=== PATIENT | female | born 1990 | race African-American/Black ===

== ENCOUNTER 2018-02-07 15:31 | Emergency (ER) | payer SELFPAY ==
[2018-02-07 15:42] VITALS: BP 115/68
--- NOTE | 2018-02-07 15:55 | ED Physician Documentation ---
General Adult - HISTORIAN Historian: patient - HPI Stated Complaint: Nausea/Emesis Chief Complaint: Nausea,Vomiting,Diarrhea Additional Information: Intro self as [employer]. pt presents to the ED c/o "generally not feeling well" reports nausea x 3 days. reports vomiting x 3 today and diarrhea yesterday. able to keep down fluids and food. sexually active and does not use control. pt denies current chest pain, dyspnea, syncope/near syncope, headache, dizziness, visual disturbances, diarrhea fever/chills, rash, sick contacts, dysuria, trauma. melena or hematochezia, bleeding or easy bruising, change in bowel or bladder function, no recent weight loss/gain, anxiety or depression. ROS Negative unless otherwise specified. LMP 12/04/17 - ROS CONST: no problems - PAST HX Past History: other (seizures last 2 weeks ago. HTN) Surgeries/Procedures: Allergies/Adverse Reactions: Allergies Allergy/AdvReac Type Severity Reaction Status Date / Time No Known Allergies Allergy Verified 02/07/18 15:42 Home Medications: Ambulatory Orders Medication Instructions Recorded Labetalol HCl [Trandate] 200 mg PO Q8H 05/31/13 Oxcarbazepine [Trileptal] 600 mg PO BID 07/31/15 - SOCIAL HX Smoking History: non-smoker Alcohol Use: none Drug Use: none - FAMILY HX Family History: No - VITAL SIGNS Vital Signs: Vital Signs Temp Pulse Resp BP Pulse Ox 96.8 F L 78 16 115/68 97 02/07/18 15:40 02/07/18 15:40 02/07/18 15:40 02/07/18 15:40 02/07/18 15:40 - REVIEWED ASSESSMENTS Nursing Assessment Reviewed: Yes Vitals Reviewed: Yes ED Results Lab/Radiology - Orders Orders: ED Orders Category Date Time Status UA W/MICRO IF INDICATED Routine Lab 02/07/18 15:47 Ordered URINE HCG Stat Lab 02/07/18 Uncollected General Adult Physical Exam - PHYSICAL EXAM GENERAL APPEARANCE: no distress EENT: eye inspection normal, ENT inspection normal, pharynx normal, no signs of dehydration, [place], no nystagmus, TM's nml NECK: normal inspection, thyroid normal RESPIRATORY: no resp distress, chest non-tender, breath sounds normal CVS: reg rate & rhythm, heart sounds normal, equal pulses, no murmur, no gallop, PMI nml, no JVD, no friction rub, 24 ABDOMEN: soft, no organomegaly, normal bowel sounds, no abdominal bruit, no distension BACK: normal inspection, no CVA tenderness SKIN: normal color, warm/dry, NR, INT, PAL, DR EXTREMITIES: non-tender, normal range of motion, no evidence of injury, no edema, J, [employer] NEURO: oriented X3, motor nml, sensation nml, mood/affect nml Discharge Clincal Impression: Gastroenteritis Referrals: Primary Doctor,No [Primary Care Provider] - 2 Days Additional Instructions: Eat bland foods like soups, broth, crackers, bread, jello. Increase fluids like gatoraid or other electrolyte replacement Phenergan 25 mg 1/2 to ONE tab every 8 hours as needed for nausea. May cause drowsiness. do not drink alcohol or drive with this medicine. use tylenol/ibuprofen for fever. Follow up with primary care next week or before if not improving as expected. seek medical care immediately if difficult to wake, difficulty breathing, feeling faint or fainting, increased rash, chest pain, shortness of breath, or fever not controlled by tylenol/motrin or any concern. PLEASE UNDERSTAND THAT THIS IS AN EMERGENCY EVALUATION FOR YOUR COMPLAINT AND BY NATURE IS LIMITED AND NOT A SUBSTITUTE FOR ONGOING MEDICAL CARE. EVEN THOUGH TEST RESULTS AND TREATMENT PLAN WERE EXPLAINED THERE MAY BE A NEED FOR ADDITIONAL TESTING TO FULLY DETERMINE THE EXTENT OF YOUR ILLNESS/INJURY/OR CO NCERN SO YOU SHOULD CONTACT AND OR ESTABLISH WITH A PRIMARY CARE PROVIDER (OR REFERRAL DOCTOR IF APPLICABLE) FOR AN APPOINTMENT SOON POSSIBLE. Condition: Good Disposition: 01 HOME, SELF-CARE Decision to Admit: NO Date of Decison to Admit: 02/07/18 Decision Time: 17:00
[2018-02-07] MEDS ORDERED: ONDANSETRON HCL 4 MG TAB.RAPDIS PO ONE (16:10)
[2018-02-07] MEDS ORDERED: 0.9 % SODIUM CHLORIDE 1,000 ML IV ONE (16:31)
[2018-02-07 16:40] LABS: APPEARANCE,URINE CLOUDY (CLEAR); COLOR,URINE YELLOW (YELLOW); OCCULT BLOOD,URINE NEGATIVE (NEGATIVE); PH URINE 7.5 (5.0 - 8.0); UROBILINOGEN URINE 0.2 Eu (0.2-1.0)
[2018-02-07 16:47] LABS: MEAN CORPUSCULAR HEMOGLOBIN 28.3 pg (28.0-34.0)
[2018-02-07 18:11] LABS: TOTAL PROTEIN 6.7 g/dL (6.0-8.5)
== END 2018-02-07 17:16 | disposition home or self-care (01) ==
LOC: ED 15:31
DX: K52.9 Noninfective gastroenteritis and colitis, unspecified (principal)
CPT/HCPCS: 36415; 80053; 81002; 81025; 85027; 96365; 99283; 99284; A9270; J7030; S1016

== ENCOUNTER 2019-01-06 09:44 | Emergency (ER) | payer OTHER ==
--- NOTE | 2019-01-06 09:51 | ED Physician Documentation ---
Abdominal Pain - HISTORIAN Historian: patient - HPI Stated Complaint: LLQ pain x 1 week Chief Complaint: Abdominal Pain Onset: days ago (7) Duration: constant Timing: worse Context: recent trauma (C section 5 weeks ago ). denies: out of country travel, bad food Severity: moderate (7/10) Quality: pain, sharp Associated Symptoms: denies: fever, chills, nausea, vomiting, coffee ground emesis, diarrhea, sweating, loss of appetite, back pain Exacerbated by: movements Relieved by: nothing Further Comments: yes (She states she started to have the LLQ pain about one week ago and now it is increasing and move with movement. She states she has some increased pressure on lateral side of the incision from the c section. NO fever. No nausea or vomiting. No rash . She has no drainage from the incision no vaginal complaints) - ROS CONST: no problems - SOCIAL HX Smoking History: cigarettes Alcohol Use: none Drug Use: none - FAMILY HX Family History: none - PAST HX Past History: none Ischemic Bowel Risk Factors: none Other History: none Surgeries/Procedures: Immunizations: UTD Home Medications: Ambulatory Orders Medication Instructions Recorded Labetalol HCl [Trandate] 200 mg PO Q8H 05/31/13 Phenytoin Sodium Extended 100 mg PO DAILY 01/06/19 [Dilantin] Sertraline HCl [Zoloft] 50 mg PO DAILY 01/06/19 Allergies/Adverse Reactions: Allergies Allergy/AdvReac Type Severity Reaction Status Date / Time No Known Allergies Allergy Verified 01/06/19 09:53 - VITAL SIGNS Vital Signs: Vital Signs Temp Pulse Resp BP Pulse Ox 99.1 F 72 19 118/60 97 01/06/19 11:18 01/06/19 11:18 01/06/19 11:18 01/06/19 11:18 01/06/19 11:18 - REVIEWED ASSESSMENTS Nursing Assessment Reviewed: Yes Vitals Reviewed: Yes Progress - Progress Progress: 1040: pain is less DG ED Results Lab/Radiology - Lab Results Lab Results: Lab Results 01/06/19 01/06/19 10:10 10:10 WBC 4.40 K/ul K/ul (4.00-12.00) RBC 4.28 M/ul M/ul (3.90-5.20) Hgb 11.7 g/dL g/dL (11.5-16.0) Hct 36.2 % % (34.5-46.5) MCV 85.0 fl fl (80.0-100.0) MCH 27.3 pg L pg (28.0-34.0) MCHC 32.3 g/dL g/dL (30.0-36.0) RDW 12.8 % % (11.3-14.3) Plt Count 158 K/mm3 K/mm3 (130-400) Neut % (Auto) 60.8 % % (39.0-79.0) Lymph % (Auto) 29.9 % % (16.0-50.0) [place] % (Auto) 7.3 % % (0.0-11.0) Eos % (Auto) 1.7 % % (0.0-6.8) Baso % (Auto) 0.3 % % (0.0-1.5) Neut # (Auto) 2.7 # k/uL # k/uL (1.4-7.7) Lymph # (Auto) 1.3 # k/uL # k/uL (0.6-4.0) [place] # (Auto) 0.3 # k/uL # k/uL (0.0-0.9) Eos # (Auto) 0.1 # k/uL # k/uL (0.0-0.6) Baso # (Auto) 0.0 # k/uL # k/uL (0.0-0.5) Sodium 142 mmol/L mmol/L (137-145) Potassium 3.6 mmol/L mmol/L (3.5-5.1) Chloride 108 mmol/L H mmol/L (98-107) Carbon Dioxide 25 mmol/L mmol/L (22-30) Anion Gap 12.6 BUN 7 mg/dL mg/dL (7-17) Creatinine 0.62 mg/dL mg/dL (0.52-1.04) Estimated Creat Clear 208 Est GFR ( Amer) > 60 (60 - ) Est GFR (Non-Af Amer) > 60 (60 - ) Glucose 108 mg/dL H mg/dL (74-106) Calcium 9.1 mg/dL mg/dL (8.4-10.2) Total Bilirubin 0.3 mg/dL mg/dL (0.2-1.3) AST 34 U/L U/L (15-46) ALT 19 U/L U/L (0-35) Alkaline Phosphatase 108 U/L U/L (38-126) Total Protein 7.1 g/dL g/dL (6.3-8.2) Albumin 3.8 g/dL g/dL (3.5-5.0) - Orders Orders: ED Orders Category Date Time Status IV Started NOW Care 01/06/19 10:[address] ABD & PELVIS W/ CON Stat Exams 01/06/19 Completed CBC/PLATELET/DIFF Stat Lab 01/06/19 10:10 Completed CMP Stat Lab 01/06/19 10:10 Completed UA W/MICRO IF INDICATED Routine Lab 01/06/19 10:10 Received 0.9 % Sodium Chloride [Normal Saline] 1,000 ml Med 01/06/19 10:06 Discontinued IV NOW Ketorolac Tromethamine [Toradol] Med 01/06/19 10:07 Discontinued 30 mg IV NOW ONE Abdominal Pain Physical Exam - Physical Exam General Appearance: no acute distress, alert EENT: eye inspection normal, ENT inspection normal, pharynx normal, no signs of dehydration NECK: normal inspection RESPIRATORY: no resp distress, chest non-tender CVS: reg rate & rhythm, heart sounds normal, no murmur ABDOMEN: soft, normal bowel sounds, no distension, tenderness (with palpation to left lateral incision. No redness. No swelling. No lump ) BACK: normal inspection, no CVA tenderness SKIN: warm/dry, normal color EXTREMITIES: non-tender NEURO: oriented X3 Vital Signs: Vital Signs Temp Pulse Resp BP Pulse Ox 99.1 F 72 19 118/60 97 01/06/19 11:18 01/06/19 11:18 01/06/19 11:18 01/06/19 11:18 01/06/19 11:18 Discharge Clincal Impression: Abdominal pain Qualifiers: Abdominal location: left lower quadrant Qualified Code(s): R10.32 - Left lower quadrant pain Constipation Qualifiers: Constipation type: other constipation type Qualified Code(s): K59.09 - Other constipation Referrals: Primary Doctor,No [Primary Care Provider] - 2 Days Comments: 1. Magnesium Citrate 1/2 bottle now and if no results 1/2 bottle in two hours 2. Increase water intake 3. Increase fiber intake 4. Follow up with OBGYN in AM 5. Return to the ER for any increased concerns Condition: Stable Disposition: 01 HOME, SELF-CARE Decision to Admit: NO Date of Decison to Admit: 01/06/19 Decision Time: 11:13
[2019-01-06] MEDS: 0.9 % SODIUM CHLORIDE 1,000 ML IV ONE (10:19)
[2019-01-06] MEDS: KETOROLAC TROMETHAMINE 30 MG/1ML VIAL IV ONE (10:20)
[2019-01-06 10:37] LABS: BASOPHILS % 0.3 % (0.0-1.5); NEUTROPHILS # 2.7 # k/uL (1.4-7.7)
[2019-01-06 10:43] LABS: eGFR (Non-African) > 60
--- NOTE | 2019-01-06 11:10 | Diagnostic Imaging Report ---
PATIENT MR#: [id number] PATIENT PATIENT NAME: TRESA WHALEY DATE OF : 1990 REFERRING PHYSICIAN: Krissy Kim EXAM DATE: 01/06/2019 ACCESSION NUMBER: [id number] EXAM DESCRIPTION: CT ABD PELVIS W/ CON Computed tomography abdomen pelvis with contrast History: 1 week of abdominal pain. Recent tubal ligation Findings: Transverse abdomen and pelvis sections are obtained after 90 mL intravenous Omnipaque 350. The gallbladder is contracted. The liver, kidneys, adrenals, spleen, lung bases, pancreas, great ves sels, and mesenteric structures are normal. Bowel loops exhibit normal caliber and wall thickness. Moderate r ight colonic stool is present. The appendix is normal. Pelvic sections reveal normal sized uterus and ovaries. The urinary bladder is empty. Pelvic bowel loops are unremarkable. Impression: Normal. Read by: Dr. Jaylen Collins Transcribed by: Transcribed Date: Electronically signed by: Dr. Jaylen Collins Date signed: 01/06/2019 11:09:42 AM
[2019-01-06 11:20] VITALS: BP 118/60
[2019-01-07 06:45] LABS: APPEARANCE,URINE CLEAR (CLEAR); COLOR,URINE YELLOW (YELLOW); OCCULT BLOOD,URINE NEGATIVE (NEGATIVE); PH URINE 6.5 (5.0 - 8.0); UROBILINOGEN URINE 0.2 Eu (0.2-1.0)
== END 2019-01-06 11:19 | disposition home or self-care (01) ==
LOC: ED 09:44
DX: K59.09 Other constipation (principal); R10.32 Left lower quadrant pain
CPT/HCPCS: 36415; 74177; 80053; 81002; 85025; 96361; 96374; 99282; 99284; J1885; J7030; Q9967; S1016